=== PATIENT | female | born 1970 | race Caucasian/White ===

== ENCOUNTER 2025-03-27 10:24 | Emergency (ER) | payer OTHER ==
[~2025-03-27] VITALS: Ht 170.2 cm; Wt 121.9 kg
--- NOTE | 2025-03-27 11:05 | RADIOLOGY REPORT ---
CHEST RADIOGRAPH Indication: DIFFICULTY BREATHING Technique: DI CHEST,TWO VIEWS Comparison: None FINDINGS: The cardiac silhouette is unremarkable. The lungs demonstrate no pulmonary airspace consolidation. The pulmonary vasculature is unremarkable. There is no pleural effusion. There is no pneumothorax. Aortic atherosclerotic disease. IMPRESSION: No pulmonary airspace consolidation.
[2025-03-27 11:08] LABS: MEAN PLATELET VOLUME 7.3 FL (7.4-10.4); RED CELL DISTRIBUTION WIDTH 13.5 % (11.5-14.5)
[2025-03-27 11:31] LABS: CREATININE 0.72 MG/DL (0.40-0.90); PRO BRAIN NATRIURETIC PEPTIDE 43 PG/ML (0-125); TOTAL CARBON DIOXIDE 26.9 MMOL/L (24-32); eCRCL 86 ML/MIN; eGFR 84 ML/MIN
[2025-03-27 11:58] LABS: APTT 26 SECONDS (22-32); INR 1.0 INR
--- NOTE | 2025-03-27 12:40 | Physician Documentation ---
History of Present Illness ~ Chief Complaint: Difficulty Breathing Stated Complaint: SOB LUNG PAIN Time Seen by MD: 10:56 OK to notify your PCP?: Yes Mode of Arrival: Ambulatory HPI 54-year-old female patient with a history of SVT on Cardizem CD came to the emergency room because paroxysmal dyspnea for about a month. She told me that she used to be diabetic but because of weight loss she is no longer diabetic. She denies fever or chills. She denies chest pain. This shortness a breath is not exertional and it happens at all times paroxysmally. No cough with sputum expectoration. No nausea vomiting diarrhea and abdominal pain. Medication Reconciliation Allergies: Coded Allergies: No Known Allergies (Unverified , 03/27/25) Scheduled PRN Albuterol Sulfate (Ventolin Hfa), 2 PUFFS INH Q4HPRN PRN for wheezing Review of Systems ROS As stated above in the HPI, otherwise all systems are reviewed and negative. Physical Exam Vital Signs: Temperature: 97.5, Source: Oral, Heart Rate: 81, Respiratory Rate: 24, BP: 144/86, Pulse Oximetry: 98, Weight: 121.900 Oxygen Flow Rate: 0 Physical Exam Reviewed vital signs and they are well within normal range. Her respiratory rate was slightly elevated but it got better. Const: Not in acute cardiopulmonary distress at rest Head: Atraumatic Eyes: Normal Conjunctiva ENT: Normal External Ears, Nose and Mouth. Moist mucous membranes Neck: Full range of motion. No meningismus Resp: Clear to auscultation bilaterally. Normal work of breathing Cardio: Heart rate 70/minute and Regular rate and rhythm, no murmurs. Skin well perfused Abd: Soft, non-tender, non-distended. Normal bowel sounds. No rebound or guarding Skin: No petechiae or rashes. Warm and dry Back: No midline or flank tenderness Ext: No cyanosis, or edema Neuro: Awake and alert Psych: Normal Mood and Affect Procedures Additional Procedures Procedure Note ED MD interpretation of EKG done at 11:02 hours shows sinus rhythm at a rate of 70 with normal axis and normal intervals. No acute ischemic changes. Progress Results/Orders Results/Orders Orders - MARA STEARNS MD Chest,Two Views (03/27/25 10:44) Saline Lock (03/27/25 10:44) Oxygen (03/27/25 10:44) Completed Orders - OHNMARA MD Chest,Two Views (03/27/25 10:44) Cbc/Diff (03/27/25 10:44) BMP (03/27/25 10:44) PBNP (03/27/25 10:44) D-Dimer (03/27/25 11:36) PTT (03/27/25 11:36) Pt Inr (03/27/25 11:36) Hs Troponin I W Calculations (03/27/25 11:36) Vital Signs 03/27/25 03/27/25 03/27/25 10:35 11:03 11:15 Temp 97.5 97.5 Pulse 78 81 Resp 16 24 B/P (MAP) 142/80 144/86 (105) Pulse Ox 98 98 O2 Flow Rate 0 Laboratory Tests Test 03/27/25 10:59 White Blood Count 4.4 L Red Blood Count 4.48 Hemoglobin 13.8 Hematocrit 39.9 Mean Corpuscular Volume 89.2 Mean Corpuscular Hemoglobin 30.8 Mean Corpuscular Hemoglobin Concent 34.6 Red Cell Distribution Width 13.5 Platelet Count 261 Mean Platelet Volume 7.3 L Neutrophils (%) (Auto) 47.9 Lymphocytes (%) (Auto) 42.5 Monocytes (%) (Auto) 6.5 Eosinophils (%) (Auto) 2.1 Basophils (%) (Auto) 1.0 Neutrophils # (Auto) 2.1 Lymphocytes # (Auto) 1.9 Monocytes # (Auto) 0.3 Eosinophils # (Auto) 0.1 Basophils # (Auto) 0.0 CBC Comment Prothrombin Time 10.3 INR International Normalized Ratio 1.0 Activated Partial Thromboplast Time 26 D-Dimer 0.47 D-Dimer Comment Coagulation Comments Sodium Level 141 Potassium Level 4.4 Chloride Level 106 Carbon Dioxide Level 26.9 Anion Gap 8 Blood Urea Nitrogen 19 H Creatinine 0.72 Estimated GFR/1.73 m2 84 BUN/Creatinine Ratio 26.4 H Glucose Level 99 Calcium Level 9.1 Troponin I High Sensitivity < 4 L Troponin I High Sens Percent Delta Troponin I Hi Sens Absolute Change Pro-B-Type Natriuretic Peptide 43 Albumin 3.8 Chemistry Comments Medical Decision Making Additional information obtaine: other Findings During the physical examination, the findings suggestive of acute life- threatening condition such as JVD, tracheal deviation, acidotic breathing, noisy stridorous breath sounds, pulses paradoxus, muffled heart sounds, unequal breath sounds, abdominal rigidity and rebound tenderness, focal neurological deficits, cool clammy skin, severe hypotension, severe tachycardia or bradycardia are absent. Patient's physical examination is unremarkable. CBC is normal. BNP is also normal. Troponin is less than four and D-dimer is less than 0.5. Chest x-ray is unremarkable. Patient is reassured and we came to the shared decision-making that she will trying to use rescue inhalers as needed and do follow with the primary care provider to see a bander hand. Patient does not have identifiable emergent medical condition that warrants inpatient medical care at this time. The patient is deemed safe for discharge with outpatient follow up. DISCLAIMER Inadvertent spelling and grammatical errors,inadvertent clinical coordinator errors,syntax errors, grammatical errors, and spelling errors are likely due to EMR/dictation software use and do not reflect on the overall quality of patient care. Note that the electronic time recorded on this note does not necessarily reflect the actual time of the patient encounter. Differential Dx:Considerations: Include: asthma, bronchitis, COPD, dysrhythmia, pneumonia, pneumonitis, pulmonary embolism Departure Disposition: 01 HOME / SELF CARE / HOMELESS Impression: Primary Impression: Paroxysmal dyspnea Condition: Stable Discharge Instructions: Shortness of Breath, Adult, [place] Additional Instructions: Thank you for coming to our Emergency Department today. Tried the rescue inhalers when you feel short of breath while you are waiting to see your primary care doctor. Please talk to your primary care doctor for pulmonary evaluation by pain management specialist. Please ask your nurse or provider if you have questions about your care today and do not leave until all your questions have been answered. Please use any medications given as directed and follow-up with your doctor (or the doctor you were referred to) in the next 1-3 days. Your primary care doctor can help to coordinate outpatient specialty care and provide authorization for specialty referral as needed. If you do not have a primary care doctor you may follow up at a [facility]. You may also use motrin and tylenol as needed for fever and/or pain unless instructed otherwise by your provider or nurse. Indications for more urgent follow-up have been discussed, but you may return to the Emergency Department at ANY time for any worrisome or worsening symptoms. County Facilities: County Facilities: [facility]: [facility] [place] Address:[address] [place] [address] [facility]: [place] Address:[address] [place] [address] [facility]: Telemedicine Address:[address] [place] [address] [facility] Address:[address] [place] [address] Registration Billing Pharmacy Referrals [facility] Address:[address] [place] [address] Referrals: NO PRIMARY CARE PROVIDER (PCP) Prescriptions Albuterol Sulfate (Ventolin Hfa) 90 Mcg Hfa.aer.ad 2 PUFFS INH Q4HPRN PRN for wheezing for 30 Days, #18 GM 2 Refills Prov: MARA STEARNS MD 03/27/25 Signature Scribe Signature: X Attestation: MARA MONTANO MD Mar 27, 2025 12:39
[2025-03-27] MEDS ORDERED: ALBU18HF2 INH (12:44)
[2025-03-27 13:14] VITALS: BP 124/84; PULSE 69; RESP 22; TEMP 97.5; O2SAT 97
--- NOTE | 2025-03-27 16:22 | ELECTROCARDIOGRAPH REPORT ---
[facility] Test Date: 2025-03-27 Test Time: 11:02:46 Pat Name: TACOS LEE Department: EMERGENCY ROOM Room: Gender: F [employer]: : 1970 Requested By: DEPARTMENT EMERGENCY Order Number: [id number] Reading MD: Dr. Jhon Sorto Measurements Intervals [place] Rate: 70 P: 50 MO: 168 QRS: 25 QRSD: 94 T: 42 QT: 399 QTc: 431 Interpretive Statements Sinus rhythm Low voltage, precordial leads Electronically Signed On 03-27-2025 18:05:[address] John Sorto Please click the below link to view image of tracing.
== END 2025-03-27 13:16 | disposition home or self-care (01) ==
LOC: ER 10:25
DX: R06.09 Other forms of dyspnea (principal); E11.9 Type 2 diabetes mellitus without complications; I49.8 Other specified cardiac arrhythmias; Z86.79 Personal history of other diseases of the circulatory system; Z79.01 Long term (current) use of anticoagulants
CPT/HCPCS: 36415; 71046; 80048; 83880; 84484; 85025; 85379; 85610; 85730; 93005; 99285